=== PATIENT | female | born 1950 | race African-American/Black ===

== ENCOUNTER 2024-09-12 03:58 | Inpatient (IN) | payer BC, MEDICARE ==
[2024-09-12] VITALS (9 sets, daily range): BP systolic 128–191; BP diastolic 63–88; PULSE 75–102; RESP 16–20; TEMP 36.3918–37.72524; O2SAT 92–100
[~2024-09-12] VITALS: Ht 167.6 cm; Wt 86.6 kg
[2024-09-12] MEDS: ALBUTEROL (0.083%) 2.5MG/3ML NEB HHN STA (04:36)
[2024-09-12] MEDS: IPRATROPIUM BROMIDE (0.02%) 0.5MG/2.5ML NEB HHN STA (04:36)
[2024-09-12 04:53] LABS: CHLORIDE 113 mEq/L (98-107); POTASSIUM 4.3 mEq/L (3.5-5.1); SODIUM 142 mEq/L (136-145)
[2024-09-12 04:54] LABS: CALCIUM 8.5 mg/dL (8.7-10.4); CARBON DIOXIDE 21 mEq/L (21-32)
[2024-09-12 04:55] LABS: BASOPHILS % 0.6 % (0.0-2.0); DIFFERENTIAL COMMENT 0; EOSINOPHILS % 0.7 % (0.0-5.0); HEMOGLOBIN. 10.1 g/dL (12.0-16.0); LYMPHOCYTES % 22.9 % (20.0-50.0); MEAN CORPUSCULAR HEMOGLOBIN 26.6 pg (28.0-32.0); MEAN CORPUSCULAR HGB CONC 33.5 g/dL (31.0-37.0); MEAN CORPUSCULAR VOLUME 79.4 fL (81.0-99.0); MEAN PLATELET VOLUME 8.5 fl (7.4-10.4); MONOCYTES % 7.6 % (2.0-8.0); NEUTROPHILS % 68.2 % (40.0-76.0); PLATELET 264 x1000/uL (130-400); RED BLOOD CELL COUNT 3.78 mill/uL (4.2-5.4); RED CELL DISTRIBUTION WIDTH 19.5 % (11.6-14.6); WHITE BLOOD COUNT 10.7 x1000/uL (4.5-11.0)
[2024-09-12 04:59] LABS: CREATININE 1.5 mg/dL (0.6-1.0); GLUCOSE 114 mg/dL (70-105); UREA NITROGEN BLOOD 19 mg/dL (9-23)
[2024-09-12 05:01] LABS: TROPONIN I HIGH SENSITIVITY 16 ng/L (3.0-34)
[2024-09-12] MEDS: METHYLPREDNISOLONE SOD SUCC 125MG/2ML (ACT-O-VIAL) IV STA (05:10)
[2024-09-12] MEDS: MAGNESIUM 2 G PREMIX 50 ML IV ONE (05:17)
[2024-09-12] MEDS: CEFTRIAXONE 1GM/50ML 50 ML IV NR (05:25)
[2024-09-12] MEDS: AZITHROMYCIN 500MG/250ML 250 ML IV NR (06:00)
[2024-09-12 06:32] LABS: TROPONIN I HIGH SENSITIVITY 15 ng/L (3.0-34)
[2024-09-12] MEDS ORDERED: ACETAMINOPHEN 325MG TABLET PO PRN (09:00)
[2024-09-12] MEDS ORDERED: ONDANSETRON HCL 4MG/2ML INJ IV PRN (09:00)
[2024-09-12] MEDS: METHYLPREDNISOLONE SOD SUCC 40MG/ML (ACT-O-VIAL) IV SCH (10:41)
[2024-09-12] MEDS: NIFEDIPINE XL 60MG TAB PO SCH (11:45)
[2024-09-12] MEDS: IPRATROPIUM/ALBUTEROL 0.5-3(2.5)MG/3ML NEB HHN SCH (12:00)
[2024-09-12] MEDS ORDERED: LORA10TA7 PO (16:07)
[2024-09-12] MEDS ORDERED: ALBU90AE IH (16:07)
[2024-09-12] MEDS ORDERED: OMEP40CA20 MT (16:07)
[2024-09-12] MEDS ORDERED: CIPR2.5D17 EACHEYE (16:07)
[2024-09-12] MEDS ORDERED: HYDR-4009 PO (16:07)
[2024-09-12] MEDS ORDERED: MONT-39 MT (16:07)
[2024-09-12] MEDS ORDERED: FURO20TA4 PO (16:07)
[2024-09-12] MEDS ORDERED: GABA-1180 PO (16:07)
[2024-09-12] MEDS ORDERED: ATOR-2 MT (16:07)
[2024-09-12] MEDS ORDERED: AMLO10TA80 MT (16:07)
[2024-09-12] MEDS ORDERED: INSU300I SQ (16:07)
[2024-09-12] MEDS: HYDRALAZINE HCL 50MG TABLET PO NR (17:50)
[2024-09-12] MEDS: GUAIFENESIN 600MG ER TABLET PO SCH (21:00)
[2024-09-12] MEDS: HYDRALAZINE HCL 50MG TABLET PO SCH (21:01)
[2024-09-13] VITALS (7 sets, daily range): BP systolic 147–168; BP diastolic 56–73; PULSE 74–94; RESP 20; TEMP 36.22512–37.33632; O2SAT 92–98
[2024-09-13] MEDS ORDERED: CEFTRIAXONE 1GM/50ML 50 ML IV SCH (06:00)
[2024-09-13] MEDS: AZITHROMYCIN 250 MG TABLET PO SCH (06:08)
[2024-09-13] MEDS: CEFTRIAXONE 1GM/50ML 50 ML IV SCH (06:09)
[2024-09-13] MEDS: LORATADINE 10MG TABLET PO SCH (08:44)
[2024-09-13] MEDS ORDERED: IPRA3AMP9 NEB (12:29)
[2024-09-13] MEDS ORDERED: FLUT1DIS3 INH (12:29)
[2024-09-13] MEDS ORDERED: P20 MT (12:29)
[2024-09-13] MEDS ORDERED: LEVO-65 MT (12:29)
[2024-09-13] MEDS ORDERED: MONTELUKAST SODIUM 10MG TABLET PO SCH (17:00)
== END 2024-09-13 14:15 | disposition home or self-care (01) | DRG 193 ==
LOC: ER 04:12 → 5WST 05:28 → EDBEDREQ 05:34 → EDBEDREQTM 05:34 → 8WST 15:53
PROVIDERS: ADMIT Internal Medicine; ATTEND Internal Medicine
DX: J18.9 Pneumonia, unspecified organism (principal); J96.01 Acute respiratory failure with hypoxia; J96.02 Acute respiratory failure with hypercapnia; J44.1 Chronic obstructive pulmonary disease with (acute) exacerbation; J44.0 Chronic obstructive pulmonary disease with (acute) lower respiratory infection; E11.9 Type 2 diabetes mellitus without complications; F17.210 Nicotine dependence, cigarettes, uncomplicated; I11.0 Hypertensive heart disease with heart failure; I50.9 Heart failure, unspecified; Z88.0 Allergy status to penicillin; Z88.5 Allergy status to narcotic agent
CPT/HCPCS: 36415; 71045; 80048; 83036; 83880; 84484; 85025; 94640; 99291; J0456; J0696; J2919; J2920; J3475

== ENCOUNTER 2024-10-15 21:06 | Inpatient (IN) | payer BC, MEDICARE ==
[~2024-10-15] VITALS: Ht 154.9 cm; Wt 88.5 kg
[~2024-10-15 21:06] MED LIST: ALBU90AE IH; AMLO10TA80 MT; ATOR-2 MT; CIPR2.5D17 EACHEYE; FLUT1DIS3 INH; FURO20TA4 PO; GABA-1180 PO; HYDR-4009 PO; INSU300I SQ; IPRA3AMP9 NEB; LEVO-65 MT; LORA10TA7 PO; MONT-39 MT; OMEP40CA20 MT; P20 MT
[2024-10-15 21:53] LABS: BASOPHILS % 0.5 % (0.0-2.0); DIFFERENTIAL COMMENT 0; EOSINOPHILS % 0.2 % (0.0-5.0); HEMATOCRIT. 27.8 % (36.0-48.0); HEMOGLOBIN. 9.3 g/dL (12.0-16.0); LYMPHOCYTES % 16.3 % (20.0-50.0); MEAN CORPUSCULAR HEMOGLOBIN 26.6 pg (28.0-32.0); MEAN CORPUSCULAR HGB CONC 33.5 g/dL (31.0-37.0); MEAN CORPUSCULAR VOLUME 79.5 fL (81.0-99.0); MEAN PLATELET VOLUME 7.6 fl (7.4-10.4); MONOCYTES % 10.8 % (2.0-8.0); NEUTROPHILS % 72.2 % (40.0-76.0); PLATELET 317 x1000/uL (130-400); RED CELL DISTRIBUTION WIDTH 21.4 % (11.6-14.6); WHITE BLOOD COUNT 11.7 x1000/uL (4.5-11.0)
[2024-10-15 21:57] LABS: CHLORIDE 112 mEq/L (98-107); POTASSIUM 4.3 mEq/L (3.5-5.1); SODIUM 140 mEq/L (136-145)
[2024-10-15 21:58] LABS: CARBON DIOXIDE 20 mEq/L (21-32)
[2024-10-15 21:59] LABS: CALCIUM 7.8 mg/dL (8.7-10.4)
[2024-10-15 22:03] LABS: CREATININE 1.6 mg/dL (0.6-1.0)
[2024-10-15 22:04] LABS: GLUCOSE 309 mg/dL (70-105); PROTHROMBIN TIME 11.1 sec (9.6-11.0); TROPONIN I HIGH SENSITIVITY 21 ng/L (3.0-34); UREA NITROGEN BLOOD 29 mg/dL (9-23)
[2024-10-15 22:05] LABS: ALANINE AMINOTRANSFERASE 23 IU/L (10-49); ALBUMIN 2.9 g/dL (3.2-4.8); ASPARTATE AMINOTRANSFERASE 21 IU/L (<34)
[2024-10-15 22:06] LABS: BILIRUBIN DIRECT 0.1 mg/dL (<=3.0); BILIRUBIN TOTAL 0.3 mg/dL (0.1-1.0); PROTEIN TOTAL 5.4 g/dL (6.0-8.3)
[2024-10-15] MEDS: CEFTRIAXONE 1GM/50ML 50 ML IV ONE (22:28)
[2024-10-15] MEDS: METOCLOPRAMIDE HCL 10MG/2ML VIAL IV STA (22:28)
[2024-10-15 22:51] LABS: LACTIC ACID 2.2 mmol/L (0.4-2.0)
[2024-10-15] MEDS: AZITHROMYCIN 500MG/250ML 250 ML IV ONE (23:40)
[2024-10-16] VITALS (13 sets, daily range): BP systolic 140–193; BP diastolic 54–129; PULSE 87–107; RESP 19–28; TEMP 36.22512–36.55848; O2SAT 83–98
[2024-10-16 02:05] LABS: BG BASE EXCESS -8.7 mmol/L (-2.0-3.0); BG CARBOXYHEMOGLOBIN 0.7 % (0.5-1.5); BG DEOXYHEMOGLOBIN 23.4 % (0.0-5.0); BG HCO3 ACT 15.4 mmol/L (21.0-28.0); BG METHEMOGLOBIN 0.3 % (0.5-1.5); BG OXYGEN SATURATION 76.4 % (94.0-98.0); BG OXYHEMOGLOBIN 75.6 % (94.0-98.0); BG PH 7.358 (7.350-7.450); BG PO2 44.6 mmHg (83.0-108.0); BG TOTAL HEMOGLOBIN 12.2 g/dL (12.0-16.0)
[2024-10-16] MEDS ORDERED: MAGNESIUM/ALUMINUM HYDROXIDE/SIMETHICONE 30ML UDC PO PRN (07:45)
[2024-10-16] MEDS ORDERED: DEXTROSE 50% WATER 50ML SYRINGE IV PRN (07:45)
[2024-10-16] MEDS ORDERED: GABA-290 PO (07:56)
[2024-10-16] MEDS ORDERED: FLUT1BLS12 IH (07:56)
[2024-10-16] MEDS ORDERED: KETOROLAC 15MG/ML VIAL IV PRN (08:00)
[2024-10-16] MEDS: INSULIN LISPRO 100 UNITS/ML SUBCUT SCH (08:20)
[2024-10-16] MEDS: BLOOD SUGAR DIAGNOSTIC STRIP TEST SCH (09:00)
[2024-10-16] MEDS: ENOXAPARIN 30MG/0.3ML SYR SUBCUT SCH (09:00)
[2024-10-16] MEDS ORDERED: ENOXAPARIN 40MG/0.4ML SYR SUBCUT SCH (09:00)
[2024-10-16] MEDS ORDERED: HYDROCODONE/ACETAMINOPHEN 5/325MG TABLET PO PRN (09:15)
[2024-10-16 10:18] LABS: BG CARBOXYHEMOGLOBIN 0.3 % (0.5-1.5); BG DEOXYHEMOGLOBIN 2.7 % (0.0-5.0); BG FRACTION INSPIRED OXYGEN 100; BG HCO3 ACT 16.4 mmol/L (21.0-28.0); BG METHEMOGLOBIN 0.3 % (0.5-1.5); BG OXYGEN SATURATION 97.3 % (94.0-98.0); BG OXYHEMOGLOBIN 96.7 % (94.0-98.0); BG PCO2 29.2 mmHg (32.0-45.0); BG PH 7.366 (7.350-7.450); BG PO2 102.9 mmHg (83.0-108.0); BG SAMPLE SITE RIGHT RADIAL; BG TOTAL HEMOGLOBIN 9.3 g/dL (12.0-16.0); BG VENT MODE MASK - NRB
[2024-10-16] MEDS: INSULIN GLARGINE 100 UNITS/ML SUBCUT SCH (10:21)
[2024-10-16] MEDS: FAMOTIDINE 20MG TABLET PO SCH (10:21)
[2024-10-16 13:22] LABS: BASOPHILS % 0.4 % (0.0-2.0); DIFFERENTIAL COMMENT 0; EOSINOPHILS % 0.5 % (0.0-5.0); HEMOGLOBIN. 9.1 g/dL (12.0-16.0); LYMPHOCYTES % 18.2 % (20.0-50.0); MEAN CORPUSCULAR HEMOGLOBIN 26.5 pg (28.0-32.0); MEAN CORPUSCULAR HGB CONC 32.5 g/dL (31.0-37.0); MEAN CORPUSCULAR VOLUME 81.3 fL (81.0-99.0); MEAN PLATELET VOLUME 7.6 fl (7.4-10.4); MONOCYTES % 9.9 % (2.0-8.0); PLATELET 306 x1000/uL (130-400); RED BLOOD CELL COUNT 3.44 mill/uL (4.2-5.4); RED CELL DISTRIBUTION WIDTH 21.3 % (11.6-14.6); WHITE BLOOD COUNT 13.5 x1000/uL (4.5-11.0)
[2024-10-16 13:45] LABS: CHLORIDE 114 mEq/L (98-107); POTASSIUM 4.5 mEq/L (3.5-5.1); SODIUM 142 mEq/L (136-145)
[2024-10-16 13:46] LABS: CALCIUM 8.1 mg/dL (8.7-10.4); CARBON DIOXIDE 18 mEq/L (21-32)
[2024-10-16 13:51] LABS: CREATININE 1.5 mg/dL (0.6-1.0); GLUCOSE 174 mg/dL (70-105); IRON 36 ug/dL (50-170); TRIGLYCERIDE 46 mg/dL (0-150)
[2024-10-16 13:52] LABS: LDL CHOLESTEROL 48 mg/dL (5-100); UREA NITROGEN BLOOD 26 mg/dL (9-23)
[2024-10-16 13:53] LABS: CHOLESTEROL 120 mg/dL (<200); HDL CHOLESTEROL 54 mg/dL (>65)
[2024-10-16 13:54] LABS: TOTAL IRON BINDING CAPACITY 191 ug/dl (250-425)
[2024-10-16 13:56] LABS: T4 FREE 1.39 ng/dL (0.89-1.76); THYROID STIMULATING HORMONE < 0.10 uIU/mL (0.55-4.78); VITAMIN B12 SERUM 836 pg/mL (211-911)
[2024-10-16] MEDS: CLONIDINE 0.1MG TABLET PO PRN (14:55)
[2024-10-16] MEDS: AMLODIPINE 10MG TABLET PO SCH (14:55)
[2024-10-16] MEDS: METHYLPREDNISOLONE SOD SUCC 40MG/ML (ACT-O-VIAL) IV SCH (14:56)
[2024-10-16] MEDS: MAGNESIUM 2 G PREMIX 50 ML IV SCH (15:56)
[2024-10-16] MEDS: IPRATROPIUM BROMIDE (0.02%) 0.5MG/2.5ML NEB HHN SCH (17:28)
[2024-10-16] MEDS ORDERED: TRAMADOL 50MG TABLET PO PRN (17:30)
[2024-10-16 18:21] LABS: BG BASE EXCESS -7.5 mmol/L (-2.0-3.0); BG CARBOXYHEMOGLOBIN 0.6 % (0.5-1.5); BG DEOXYHEMOGLOBIN 9.1 % (0.0-5.0); BG FRACTION INSPIRED OXYGEN 34; BG HCO3 ACT 15.6 mmol/L (21.0-28.0); BG METHEMOGLOBIN 0.3 % (0.5-1.5); BG OXYGEN SATURATION 90.8 % (94.0-98.0); BG PCO2 24.3 mmHg (32.0-45.0); BG PH 7.424 (7.350-7.450); BG PO2 62.1 mmHg (83.0-108.0); BG SAMPLE SITE RIGHT RADIAL; BG TOTAL HEMOGLOBIN 10.1 g/dL (12.0-16.0); BG VENT MODE NASAL CANNULA
[2024-10-16] MEDS ORDERED: FAMOTIDINE 20MG TABLET PO SCH (21:00)
[2024-10-16] MEDS ORDERED: CEFTRIAXONE 1GM/50ML 50 ML IV SCH (21:00)
[2024-10-16] MEDS ORDERED: AZITHROMYCIN 500MG/250ML 250 ML IV SCH (21:00)
[2024-10-16] MEDS: AZITHROMYCIN 500MG/250ML 250 ML IV SCH (21:16)
[2024-10-16] MEDS: BUDESONIDE 0.5MG/2ML NEB HHN SCH (21:24)
[2024-10-16] MEDS ORDERED: NALOXONE HCL 0.4MG/ML VIAL IV PRN (22:00)
[2024-10-16] MEDS: ONDANSETRON HCL 4MG/2ML INJ IV PRN (22:11)
[2024-10-16 22:29] LABS: *AMPHETAMINES SCREEN URINE NEGATIVE (NEGATIVE); *BARBITURATES SCREEN URINE NEGATIVE (NEGATIVE); *BENZODIAZEPINES SCREEN URINE NEGATIVE (NEGATIVE); *COCAINE SCREEN URINE NEGATIVE (NEGATIVE); METHADONE URINE SCREEN NEGATIVE (NEGATIVE)
[2024-10-16 22:30] LABS: CANNABINOID URINE SCREEN NEGATIVE (NEGATIVE); ECSTASY MDMA SCREEN URINE NEGATIVE (NEGATIVE); OPIATES URINE SCREEN NEGATIVE (NEGATIVE); PHENCYCLIDINE URINE SCREEN NEGATIVE (NEGATIVE)
[2024-10-16 22:43] LABS: CLARITY URINE CLOUDY (CLEAR); COLOR URINE YELLOW (YELLOW); GLUCOSE URINE NEGATIVE (NEGATIVE); KETONES URINE NEGATIVE (NEGATIVE); LEUKOCYTE ESTERASE URINE NEGATIVE (NEGATIVE); NITRITE URINE NEGATIVE (NEGATIVE); OCCULT BLOOD URINE TRACE (NEGATIVE); PROTEIN URINE 3+ (NEGATIVE); SPECIFIC GRAVITY URINE 1.016 (1.005-1.030); UROBILINOGEN URINE 1 E.U./dL (0.2-1.0)
[2024-10-16 22:45] LABS: BACTERIA URINE TRACE; RBC URINE 0-2 /hpf (0-2); SQUAMOUS EPITHELIAL CELL URINE 1+ /lpf (RARE/1+); WBC URINE NONE SEEN /hpf (0-2)
[2024-10-16] MEDS: CEFTRIAXONE 1GM/50ML 50 ML IV SCH (23:00)
[2024-10-17] VITALS (20 sets, daily range): BP systolic 114–169; BP diastolic 51–80; PULSE 80–107; RESP 16–30; TEMP 36.16956–36.72516; O2SAT 89–100
[2024-10-17] MEDS: GUAIFENESIN-DM 200MG-20MG/10ML UDC PO PRN (03:58)
[2024-10-17] MEDS: BENZONATATE 100MG CAPSULE PO PRN (12:50)
[2024-10-17] MEDS: INSULIN GLARGINE 100 UNITS/ML SUBCUT SCH (13:09)
[2024-10-18] VITALS (20 sets, daily range): BP systolic 117–161; BP diastolic 55–81; PULSE 70–97; RESP 17–57; TEMP 36.22512–37.61412; O2SAT 91–98
[2024-10-18] MEDS: INSULIN GLARGINE 100 UNITS/ML SUBCUT SCH (09:38)
[2024-10-18 11:37] LABS: BG BASE EXCESS -6.1 mmol/L (-2.0-3.0); BG CARBOXYHEMOGLOBIN 0.5 % (0.5-1.5); BG DEOXYHEMOGLOBIN 12.4 % (0.0-5.0); BG FRACTION INSPIRED OXYGEN 21; BG HCO3 ACT 16.9 mmol/L (21.0-28.0); BG METHEMOGLOBIN 0.3 % (0.5-1.5); BG OXYGEN SATURATION 87.5 % (94.0-98.0); BG OXYHEMOGLOBIN 86.8 % (94.0-98.0); BG PCO2 25.9 mmHg (32.0-45.0); BG PH 7.433 (7.350-7.450); BG PO2 55.4 mmHg (83.0-108.0); BG SAMPLE SITE RIGHT RADIAL; BG TOTAL HEMOGLOBIN 10.3 g/dL (12.0-16.0); BG VENT MODE ROOM AIR
[2024-10-18 12:53] LABS: POTASSIUM 6.1 mEq/L (3.5-5.1)
[2024-10-18 12:54] LABS: CALCIUM 8.5 mg/dL (8.7-10.4)
[2024-10-18 12:59] LABS: CREATININE 1.8 mg/dL (0.6-1.0)
[2024-10-18] MEDS: ACETAMINOPHEN 325MG TABLET PO PRN (16:20)
[2024-10-18 16:21] LABS: BASOPHILS % 0.3 % (0.0-2.0); HEMATOCRIT. 33.2 % (36.0-48.0); HEMOGLOBIN. 10.2 g/dL (12.0-16.0); LYMPHOCYTES % 10.1 % (20.0-50.0); MEAN CORPUSCULAR HEMOGLOBIN 26.4 pg (28.0-32.0); MEAN CORPUSCULAR HGB CONC 30.8 g/dL (31.0-37.0); MEAN CORPUSCULAR VOLUME 85.7 fL (81.0-99.0); MEAN PLATELET VOLUME 8.2 fl (7.4-10.4); MONOCYTES % 5.4 % (2.0-8.0); NEUTROPHILS % 84.2 % (40.0-76.0); PLATELET 336 x1000/uL (130-400); RED BLOOD CELL COUNT 3.88 mill/uL (4.2-5.4); RED CELL DISTRIBUTION WIDTH 21.5 % (11.6-14.6); WHITE BLOOD COUNT 13.4 x1000/uL (4.5-11.0)
[2024-10-18] MEDS: INSULIN REGULAR (HUMULIN R) 1000UNITS/10ML VIAL IV NR (17:15)
[2024-10-18] MEDS: SODIUM ZIRCONIUM CYCLOSILICATE 10GM/PACKET PO NR ×2 (17:15→22:17)
[2024-10-18] MEDS: SODIUM BICARBONATE 8.4% 50MEQ/50ML SYR IV NR (17:51)
[2024-10-18] MEDS: CALCIUM GLUCONATE 1GM PREMIX 50 ML IV NR (18:39)
[2024-10-18 21:16] LABS: POTASSIUM 5.3 mEq/L (3.5-5.1)
[2024-10-19] VITALS (16 sets, daily range): BP systolic 124–163; BP diastolic 62–80; PULSE 72–114; RESP 0–29; TEMP 36.28068–37.11408; O2SAT 92–100
[2024-10-19 07:32] LABS: CHLORIDE URINE RANDOM < 20 mEq/L; SODIUM URINE RANDOM 10 mEq/L
[2024-10-19 07:39] LABS: CREATININE URINE RANDOM 68.8 mg/dL; UREA NITROGEN URINE RANDOM 700 mg/dL
[2024-10-19 08:09] LABS: HEMATOCRIT. 30.3 % (36.0-48.0); MEAN CORPUSCULAR HEMOGLOBIN 26.3 pg (28.0-32.0); MEAN CORPUSCULAR HGB CONC 32.9 g/dL (31.0-37.0); MEAN PLATELET VOLUME 7.9 fl (7.4-10.4); PLATELET 356 x1000/uL (130-400); RED BLOOD CELL COUNT 3.78 mill/uL (4.2-5.4); RED CELL DISTRIBUTION WIDTH 20.5 % (11.6-14.6); WHITE BLOOD COUNT 10.9 x1000/uL (4.5-11.0)
[2024-10-19 08:15] LABS: DIFFERENTIAL COMMENT 1
[2024-10-19 08:16] LABS: POTASSIUM 5.9 mEq/L (3.5-5.1)
[2024-10-19 08:17] LABS: CALCIUM 8.3 mg/dL (8.7-10.4)
[2024-10-19 09:20] LABS: ANISOCYTOSIS 2+; PLATELET ESTIMATE NORMAL
[2024-10-19] MEDS: INSULIN REGULAR (HUMULIN R) 1000UNITS/10ML VIAL IV NR (10:21)
[2024-10-19] MEDS: SODIUM ZIRCONIUM CYCLOSILICATE 10GM/PACKET PO NR (10:27)
[2024-10-19] MEDS: DEXTROSE 50% WATER 50ML SYRINGE IV NR (10:27)
[2024-10-19] MEDS: ALBUTEROL (0.5%) 2.5MG/0.5ML NEB HHN NR (11:00)
[2024-10-19] MEDS ORDERED: IPRATROPIUM/ALBUTEROL 0.5-3(2.5)MG/3ML NEB HHN PRN (12:30)
[2024-10-19] MEDS: FUROSEMIDE 40MG/4ML VIAL IVP SCH (14:41)
[2024-10-19 17:23] LABS: BG BASE EXCESS -5.8 mmol/L (-2.0-3.0); BG CARBOXYHEMOGLOBIN 0.1 % (0.5-1.5); BG DEOXYHEMOGLOBIN 8.5 % (0.0-5.0); BG FRACTION INSPIRED OXYGEN 22; BG HCO3 ACT 17.5 mmol/L (21.0-28.0); BG METHEMOGLOBIN 0.3 % (0.5-1.5); BG OXYGEN SATURATION 91.5 % (94.0-98.0); BG OXYHEMOGLOBIN 91.1 % (94.0-98.0); BG PCO2 27.5 mmHg (32.0-45.0); BG PH 7.422 (7.350-7.450); BG SAMPLE SITE RIGHT RADIAL; BG TOTAL HEMOGLOBIN 10.5 g/dL (12.0-16.0); BG VENT MODE NASAL CANNULA
[2024-10-19] MEDS: IPRATROPIUM/ALBUTEROL 0.5-3(2.5)MG/3ML NEB HHN SCH (19:52)
[2024-10-19 22:23] LABS: POTASSIUM 4.6 mEq/L (3.5-5.1)
[2024-10-20] VITALS (8 sets, daily range): BP systolic 136–152; BP diastolic 58–97; PULSE 81–90; RESP 12–23; TEMP 36.6696–37.66968; O2SAT 93–96
[2024-10-20 07:30] LABS: BASOPHILS % 0.3 % (0.0-2.0); DIFFERENTIAL COMMENT 0; HEMATOCRIT. 27.6 % (36.0-48.0); HEMOGLOBIN. 9.2 g/dL (12.0-16.0); LYMPHOCYTES % 29.3 % (20.0-50.0); MEAN CORPUSCULAR HEMOGLOBIN 26.4 pg (28.0-32.0); MEAN CORPUSCULAR HGB CONC 33.4 g/dL (31.0-37.0); MEAN CORPUSCULAR VOLUME 79.2 fL (81.0-99.0); MEAN PLATELET VOLUME 8.1 fl (7.4-10.4); MONOCYTES % 10.7 % (2.0-8.0); NEUTROPHILS % 59.7 % (40.0-76.0); PLATELET 343 x1000/uL (130-400); RED BLOOD CELL COUNT 3.48 mill/uL (4.2-5.4); RED CELL DISTRIBUTION WIDTH 20.2 % (11.6-14.6); WHITE BLOOD COUNT 16.6 x1000/uL (4.5-11.0)
[2024-10-20 07:48] LABS: POTASSIUM 4.4 mEq/L (3.5-5.1)
[2024-10-20 07:49] LABS: CALCIUM 7.8 mg/dL (8.7-10.4)
[2024-10-20] MEDS: PREDNISONE 20MG TABLET PO SCH (08:20)
== END 2024-10-20 10:30 | disposition left against medical advice (07) | DRG 871 ==
LOC: ER 21:06 → 5EST 10-16 03:18
PROVIDERS: ADMIT Preventive Medicine Clinical Informatics; ATTEND Preventive Medicine Clinical Informatics
PROC: 5A09357 Assistance with Respiratory Ventilation, Less than 24 Consecutive Hours, Continuous Positive Airway Pressure (ICD-10-PCS; principal; 2024-10-16)
DX: A41.9 Sepsis, unspecified organism (principal); J18.9 Pneumonia, unspecified organism; J96.01 Acute respiratory failure with hypoxia; J96.02 Acute respiratory failure with hypercapnia; J44.0 Chronic obstructive pulmonary disease with (acute) lower respiratory infection; J44.1 Chronic obstructive pulmonary disease with (acute) exacerbation; E87.20 Acidosis, unspecified; N17.9 Acute kidney failure, unspecified; Z20.822 Contact with and (suspected) exposure to COVID-19; I27.21 Secondary pulmonary arterial hypertension; I27.81 Cor pulmonale (chronic); Z53.29 Procedure and treatment not carried out because of patient's decision for other reasons; D50.9 Iron deficiency anemia, unspecified; E11.22 Type 2 diabetes mellitus with diabetic chronic kidney disease; N18.9 Chronic kidney disease, unspecified; E78.00 Pure hypercholesterolemia, unspecified; I12.9 Hypertensive chronic kidney disease with stage 1 through stage 4 chronic kidney disease, or unspecified chronic kidney disease; E11.65 Type 2 diabetes mellitus with hyperglycemia; G89.29 Other chronic pain; R74.8 Abnormal levels of other serum enzymes; F17.210 Nicotine dependence, cigarettes, uncomplicated; Z88.0 Allergy status to penicillin; Z79.4 Long term (current) use of insulin; Z88.5 Allergy status to narcotic agent; Z79.51 Long term (current) use of inhaled steroids; Z88.8 Allergy status to other drugs, medicaments and biological substances; Z79.899 Other long term (current) drug therapy
CPT/HCPCS: 36415; 36600; 71045; 73610; 76770; 80048; 80061; 80076; 80305; 81003; 82375; 82436; 82570; 82607; 82805; 82962; 83036; 83540; 83550; 83605; 83880; 84132; 84145; 84300; 84439; 84443; 84484; 84540; 85025; 85379; 87426; 87804; 93005; 93306; 93970; 94070; 94640; 94660; 99291; J0456; J0610; J0696; J1650; J1815; J1940; J2405; J2765; J2920; J3475; J3490; J7512; J7626